=== PATIENT | female | born 1990 ===

== ENCOUNTER 2018-05-30 14:09 | Emergency (ER) | payer MEDICAID ==
--- NOTE | 2018-05-30 15:29 | EDM.PDOC ---
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 The patient has had 1 previous miscarriage in December 2016, which she passed on her own. She did have a positive test in 2016 with a suspected miscarriage. As on the she states that she had an episode of a lot of bleeding with big clots being passed. She states since she has had a 30 lb unintentional weight loss. Since this time she has been doing heroin, dilaudid, oxycodone, and meth. The last time she used any of this was last Thursday-. On , she was at a suboxone clinic and they told her that she did have a positive test. She does admit to typical symptoms like nausea and boob tenderness. She has had some spotting and a brown slimy discharge. She feels well otherwise. She is wanting to know if she is in fact , and then about how far a long she would be. Abdomen Pain Score (Numeric/FACES): 6 - Related Data Allergies Allergy/AdvReac Type Severity Reaction Status Date / Time No Known Allergies Allergy Verified 05/30/18 14:32 Home Meds: Home Meds Buprenorphine HCl/Naloxone HCl [Zubsolv 8.6-2.1 mg Tablet Sl] 1 tab PO DAILY [History] Past Medical History Psychiatric History: Reports: Addiction Social & Family History - Tobacco Use Smoking Status *Q: Current Every Day Smoker Years of Tobacco use: 10 Packs/Tins Daily: 1 - Caffeine Use Caffeine Use: Reports: Soda - Recreational Drug Use Recreational Drug Use: Yes Drug Use in Last 12 Months: Yes Recreational Drug Type: Reports: Dilaudid, Heroin, Methamphetamine, Oxycodone - Sexual History Sexual History: Reports: Sexually Active, Vaginal [place] ED ROS GENERAL - Review of Systems Review Of Systems: See Below Constitutional: Reports: No Symptoms HEENT: Reports: No Symptoms Respiratory: Reports: No Symptoms Cardiovascular: Reports: No Symptoms Endocrine: Reports: No Symptoms GI/Abdominal: Reports: Nausea : Reports: Discharge (vaginal spotting with some brown slimy discharge.) Musculoskeletal: Reports: No Symptoms Skin: Reports: No Symptoms Neurological: Reports: No Symptoms Psychiatric: Reports: No Symptoms Hematologic/Lymphatic: Reports: No Symptoms Immunologic: Reports: No Symptoms ED EXAM - Physical Exam Exam: See Below Exam Limited By: No Limitations General Appearance: Alert, WD/WN, No Apparent Distress Eye Exam: Bilateral Eye: EOMI, Normal Inspection, PERRL Ears: Normal External Exam Nose: Normal Inspection Throat/Mouth: Normal Inspection, Normal Oropharynx, No Airway Compromise Head: Atraumatic, Normocephalic Neck: Normal Inspection Respiratory/Chest: No Respiratory Distress, Lungs Clear, Normal Breath Sounds, No Accessory Muscle Use, Chest Non-Tender Cardiovascular: Normal Peripheral Pulses, Regular Rate, Rhythm, No Murmur GI/Abdominal Exam: Normal Bowel Sounds, Soft, Non-Tender, No Distention, No Mass (Female) Exam: Normal External Exam, Vaginal Tears (posterior tear present, she admitted to having rough sexual intercourse). No: Uterine Tenderness, Vaginal Bleeding, Vaginal Discharge Heart Tones: Not [place] (unsure of gestational age) Movement: Not Appreciated Back Exam: Normal Inspection, Full Range of Motion Extremities: Normal Inspection, Normal Capillary Refill Neurological: Alert, Oriented, Normal Cognition, No Motor/Sensory Deficits Psychiatric: Normal Affect, Normal Mood Skin Exam: Warm, Dry, Intact, Normal Color, No Rash Course - Vital Signs Last Recorded V/S: Last Vital Signs Temp 99.2 F 05/30/18 14:35 Pulse 92 05/30/18 14:35 Resp BP 142/85 H 05/30/18 14:35 Pulse Ox 100 05/30/18 14:35 - Orders/Labs/Meds Labs: Laboratory Tests 05/30/18 05/30/18 Range/Units 14:55 16:33 HCG, Quant 650537.0 mIU/mL C trachomatis DNA (PCR) Not detected N gonorrhoeae DNA (PCR) Not detected - Re-Assessments/Exams Free Text/Narrative Re-Assessment/Exam: 05/30/18 15:38 Pt presents to the ED for the evaluation of possible . Due to her not knowing when her LMP was it is difficult to ascertain how far along this is. She did have a positive test on , I have ordered a Quant HCG and transvaginal US for further investigations of this matter. If she is indeed with a viable , I will try to contact [facility] to see if they know of any OB providers that may be able to monitor this patient while on suboxone therapy. As for her unintentional weight loss, I believe that the combination of all the drugs that she was using may have attributed to this somewhat. Will encourage a healthy diet plan. 05/30/18 15:58 Her Quant HCG is 106,113, she is indeed . Hopefully the US can help us determine just how far along she actually is. Will order a dirty catch urine for evaluation of possible STDs. Pt is okay with this plan. 05/30/18 16:49 US is done and the patient is around [id number] . The baby's heartbeat is 150bpm. I will provide her with our clinic number for f/u tomorrow with one of our OB providers and they can make a referral for an appropriate suboxone program for her. 05/30/18 19:20 Her urine gonorrhea/chlamydia test was negative. Departure - Departure Time of Disposition: 17:00 Disposition: Home, Self-Care 01 Condition: Fair Clinical Impression: Qualifiers: Weeks of gestation: 12 weeks Qualified Code(s): Z3A.12 - 12 weeks gestation of - Discharge Information *PRESCRIPTION DRUG MONITORING PROGRAM REVIEWED*: No *COPY OF PRESCRIPTION DRUG MONITORING REPORT IN PATIENT [place]: No Instructions: First Trimester of , [id number], Second Trimester of , [id number] Referrals: PCP,None [Primary Care Provider] - Forms: ED Department Discharge Additional Instructions: You have been evaluated in the ED for questionable . You are indeed and the US dates you at around 12 weeks 4 days, this is at the end of the 1st trimester. The estimated due date is 12/08/2018. Recommend that you start taking a vitamin. You will be called with the results of your urine test if treatment is needed. Please call [phone] to set up with OB doctor for initial visit and evaluation regarding suboxone use during . Recommend Irineo Lay. Please return to the ED if your symptoms change or worsen.
--- NOTE | 2018-05-30 16:43 | US ---
First trimester obstetrical ultrasound: Multiple real-time images were obtained transvaginally. Comparison: No previous study for current . Dates: Current ultrasound: [facility] 12/08/18, gestational age 12 weeks 4 days Single intrauterine gestation is seen. Amniotic fluid volume is normal. No subchorionic hemorrhage is seen. Small an incidental nabothian cyst is noted. Maternal adnexa: Within normal limits Measurements: [place]-rump length: 5.51 cm - 12 weeks 1 day BPD: 1.99 cm - 13 weeks 1 day Head circumference: 7.04 cm - 12 weeks 6 days Abdominal circumference: 5.93 cm - 12 weeks 5 days Femur length: 0.70 cm - 12 weeks 1 day Estimated weight: 58 g (0 lbs. 2 oz.), heart rate: 150 BPM Impression: 1. Single intrauterine gestation. Dates as noted above. 2. No complicating process is seen by ultrasound at this time. Diagnostic code #1
[2018-05-30 18:32] LABS: C. TRACHOMATIS BY PCR NOT DETECTED; N. GONORRHOEAE BY PCR NOT DETECTED
== END 2018-05-30 17:06 | disposition home or self-care (01) ==
LOC: JD.ED 14:09
DX: O99.89 Other specified diseases and conditions complicating pregnancy, childbirth and the puerperium (principal); R11.0 Nausea; O99.331 Smoking (tobacco) complicating pregnancy, first trimester; F17.210 Nicotine dependence, cigarettes, uncomplicated; Z3A.12 12 weeks gestation of pregnancy
CPT/HCPCS: 36415; 76817; 76817-26; 84702; 87491; 87591; 99283; 99284-25